=== PATIENT | female | born 1995 | race Caucasian/White ===

== ENCOUNTER 2019-08-24 02:01 | Inpatient (IN) | payer MEDICAID ==
[~2019-08-24] VITALS: Ht 160 cm; Wt 96.4 kg
[2019-08-24] VITALS (15 sets, daily range): BP systolic 99–130; BP diastolic 51–64
--- NOTE | 2019-08-24 02:07 | NUR ---
KARAN MADISON presented to unit via W/C from home/ED, accompanied by Maribel Ellington ED aide & SO, with c/o CONTRACTIONS. KARAN MADISON weighed, gowned, voided, and to bed. EFHM and TOCO applied, VS taken. KARAN MADISON oriented to bed controls, call light, TV, heat, and A/C controls.
[2019-08-24] MEDS ORDERED: PREN-142 PO (02:41)
[2019-08-24 02:43] LABS: BILIRUBIN,URINE NEGATIVE (NEGATIVE); CLARITY,URINE CLEAR; COLOR,URINE YELLOW; GLUCOSE, URINE (UA) NEGATIVE (NEGATIVE); KETONES,URINE NEGATIVE (NEGATIVE); LEUKOCYTE ESTERASE ,URINE 3+ (NEGATIVE); NITRITE,URINE NEGATIVE (NEGATIVE); PH,URINE 7 (5-9); PROTEIN,URINE NEGATIVE (NEGATIVE)
[2019-08-24 02:55] LABS: BACTERIA,URINE TRACE /HPF; WBC,URINE 25-50 /HPF
[2019-08-24 02:56] LABS: TRICHOMONAS,URINE MODERATE /HPF
--- NOTE | 2019-08-24 03:45 | NUR ---
Pt and SO educated on STD's and importance of treatment. Pt reassured that treatment will be available and staff will monitor pt and fetus condition accordingly
--- NOTE | 2019-08-24 06:00 | NUR ---
Dr Valles called with report or pt situation. Orders obtained to make pt inpt and medications for pain obtained.
[2019-08-24] MEDS ORDERED: D5 LR IV SOLUTION 1,000 ML IV ONE (06:31)
[2019-08-24] MEDS ORDERED: metroNIDAZOLE 500MG/100ML IVPB 100 ML ONE (06:31)
[2019-08-24] MEDS ORDERED: HYDROmorphone 2 MG/ML VIAL (DILAUDID) ONE (06:31)
[2019-08-24] MEDS ORDERED: D5 LR IV SOLUTION 1,000 ML IV SCH (06:58)
--- NOTE | 2019-08-24 06:58 | History & Physical-OB ---
OB - Chief Complaint & HPI Date/Time Date of Admission: Date of Admission: Date seen by a Provider: Aug 24, 2019 Time Seen by a Provider: 07:15 Chief Complaint/History OB-Reason for Admission/Chief: Onset of Labor Hx : 5 Hx Para: 4 Expected Date of Delivery: Sep 01, 2019 Gestational Age in Weeks: 38 Gestational Age in Days: 6 Admission Nurse Assessment Rev: Yes History of Labs A pos Antibody neg RI HBsAg NR HIV NR RPR + Titers: 08/09 1:8- treated 07/25 1:8 treated 07/11 1:8 -treated GBS neg Trich + at admission Allergies and Home Medications Allergies Coded Allergies: shellfish derived (Verified Allergy, Severe, Anaphylaxis, 08/24/19) Home Medications Vit No.124/Iron/FA 1 Each Tablet, 1 EACH PO DAILY, (Reported) Patient Home Medication List Home Medication List Reviewed: Yes OB - History Hx of Present Care: Yes Ultrasounds: Normal mid trimester US Obstetrical Complications: Other (Maternal syphillus) Medical Complications: Other (RPR +) Obstetrical History Hx : 5 Hx Para: 4 Patient Past Medical History + RPR Social History/Family History Recent Infectious Disease Expo: No Alcohol Use: Denies Use Recreational Drug Use: No 2nd Hand Smoke Exposure: Yes OB - Admission Exam Physical Exam Vitals: Vital Signs 08/24/19 08/24/19 02:21 02:41 Temp 36.6 Pulse 94 Resp 18 B/P (MAP) 116/64 (81) O2 Delivery Room Air HEENT: NCAT Heart: Rhythm Normal Lungs: Clear Abdomen: Gravid Extremities: Normal Reflexes: Normal Cervical Dilatation: 4cm Effacement: 75% Station: -1 Membranes: Intact Heart Rate: 130's Accelerations: Accelerations Present Decelerations: No Decelerations Short Term Variability: Present Coloring Room Man Variability: Average (6-25) Contractions on Admission: < 5 Minutes Apart Intensity: Firm Labs Laboratory Tests Test 08/24/19 02:10 Range/Units Urine Color YELLOW Urine Clarity CLEAR Urine pH 7 5-9 Urine Specific [place] 1.010 L 1.016-1.022 Urine Protein NEGATIVE NEGATIVE Urine Glucose (UA) NEGATIVE NEGATIVE Urine Ketones NEGATIVE NEGATIVE Urine Nitrite NEGATIVE NEGATIVE Urine Bilirubin NEGATIVE NEGATIVE Urine Urobilinogen NORMAL NORMAL MG/DL Urine Leukocyte Esterase 3+ H NEGATIVE Urine RBC (Auto) 1+ H NEGATIVE Urine RBC 5-10 H /HPF Urine WBC 25-50 H /HPF Urine Squamous Epithelial Cells 2-5 /HPF Urine Crystals NONE /LPF Urine Bacteria TRACE /HPF Urine Casts NONE /LPF Urine Mucus SMALL H /LPF Urine Trichomonas MODERATE H /HPF Urine Culture Indicated NO OB - Assessment/Plan/Diagnosis Assessment Assessment: active labor Admission Dx 24 yo @ 38.6 Active labor RPR + GBS neg Admission Status: Inpatient Order (span 2 midnights) Reason for Inpatient Admission: Active labor at term Plan Plan: Expectant Management Other Plan Treat with IV Flagyl for trichimonas PETERSON SULTANA DO Aug 24, 2019 6:58 am
[2019-08-24] MEDS ORDERED: HYDROmorphone 2 MG/ML VIAL (DILAUDID) IV ONE ×2 (07:00→08:55)
[2019-08-24 07:10] LABS: BASOPHILS % (AUTO) 0 % (0-10); EOSINOPHILS # (AUTO) 0.1 10^3/uL (0.0-0.3); EOSINOPHILS % (AUTO) 1 % (0-10); HEMATOCRIT 36 % (35-52); HEMOGLOBIN 12.3 G/DL (11.5-16.0); LYMPHOCYTES # (AUTO) 1.4 X 10^3 (1.0-4.0); LYMPHOCYTES % (AUTO) 15 % (12-44); MEAN CORPUSCULAR HEMOGLOBIN 30 PG (25-34); MEAN CORPUSCULAR HGB CONC 34 G/DL (32-36); MEAN CORPUSCULAR VOLUME 89 FL (80-99); MEAN PLATELET VOLUME 11.5 FL (7.4-10.4); MONOCYTES # (AUTO) 0.7 X 10^3 (0.0-1.0); MONOCYTES % (AUTO) 8 % (0-12); NEUTROPHILS % (AUTO) 76 % (42-75); PLATELET COUNT 190 10^3/uL (130-400); RED CELL DISTRIBUTION WIDTH 13.2 % (10.0-14.5); WHITE BLOOD COUNT 9.2 10^3/uL (4.3-11.0)
[2019-08-24] MEDS ORDERED: OXYTOCIN PRE-MIX DRIP 500 ML IV ONE (07:28)
[2019-08-24] MEDS ORDERED: LIDOCAINE/EPI 2% 1:200,00 (XYLOCAINE) 10 ML VIAL ONE (07:28)
[2019-08-24] MEDS ORDERED: TETANUS,DIPTH,PERTUSS P/F (BOOSTRIX) 0.5 ML VIAL IM ONE (08:30)
[2019-08-24] MEDS ORDERED: MEASLES,MUMPS,RUBELLA 1 EA INJ SQ ONE (08:30)
[2019-08-24] MEDS ORDERED: IBUP-1773 PO (08:30)
[2019-08-24] MEDS ORDERED: DOCU-143 PO (08:30)
[2019-08-24] MEDS ORDERED: WITCH HAZEL(TUCKS) 40 EA JAR TOP PRN (08:30)
[2019-08-24] MEDS ORDERED: DIBUCAINE (NUPERCAINAL) 1% OINT 30 GM TOP PRN (08:30)
[2019-08-24] MEDS ORDERED: BENZOCAINE/MENTHOL (DERMOPLAST) 60 ML CAN TP PRN (08:30)
[2019-08-24] MEDS ORDERED: Benzocaine/Menthol TP (08:30)
[2019-08-24] MEDS ORDERED: HYDR-4226 PO (08:30)
--- NOTE | 2019-08-24 08:31 | Discharge Inst-Women's Service ---
Discharge Inst-Women's Serv Depart Medication/Instructions New, Converted or Re-Newed RX: RX on Chart Final Diagnosis PPD 1 NVD Problems Reviewed?: Yes Consults/Follow Up Additional Follow Up: Yes Orders/Referrals Dr. Sultana in 6 weeks Activity Activity: Activity as Tolerated Driving Instructions: No Driving for 1 Week NO SMOKING: NO SMOKING Nothing Inside Vagina: No Douching, No [place], No Tampons Diet Discharge Diet: No Restrictions Symptoms to Report to : Bleeding Excessive, Pain Increased, Fever Over 101 Degrees F, Vaginal Bleeding Increase, Questions/Concerns For Any Problems or Questions: Contact Your Physician PETERSON SULTANA DO Aug 24, 2019 8:31 am
[2019-08-24] MEDS ORDERED: HYDROcodone/APAP 5 MG/325 MG (LORTAB) TAB PO PRN (08:45)
[2019-08-24] MEDS: OXYTOCIN PRE-MIX DRIP 500 ML IV SCH ×2 (09:06→09:43)
--- NOTE | 2019-08-24 09:19 | OB Labor & Delivery Record ---
L&D History Date of Service Date of Service: Aug 24, 2019 History Expected Date of Delivery: Sep 01, 2019 Gestational Age in Weeks: 38 Hx : 5 Hx Para: 4 Complications Events: Routine care RPR + with titers Operative Indications (Cesarea: N/A-Vaginal Delivery Intrapartal Events: None L&D Stage1 Stage One Onset of Labor - Date: Aug 24, 2019 Monitors and Tracing Monitor Mode: External Heart Rate: 115 Monitor Decelerations: Early Station: -2 Short Term Variability: Present Presentation: Vertex Vital Signs VS - Last 72 Hours, by Label 08/24/19 08/24/19 08/24/19 08/24/19 02:21 02:41 04:30 06:00 Temp 36.6 36.6 36.4 36.4 Pulse 94 94 93 93 Resp B/P (MAP) 116/64 (81) 115/54 (74) Pulse Ox 98 O2 Delivery Room Air Room Air 08/24/19 07:15 Temp 36.7 Rupture of Membranes Spontaneous Ruture of Membrane: No Amniotic Membrane Rupture Time: 717 Amniotic Membrane Fluid Desc.: Clear Vaginal Bleeding Description: Normal Show Progress/Notes patient progressed without any augmentation to complete and +2 station. 1 mg dilaudid was given x 1 dose for intrapartum pain control L&D Stage2 Stage Two Stage II Date: Aug 24, 2019 Monitors and Tracing Monitor Mode: External Heart Rate: 115 Monitor Decelerations: Early Software Developer Manager Variability: Average (6-10) Short Term Variability: Present Position: Right Occiput Anterior Presentation: Vertex Cord Descript/Complications Cord Vessel Description: 3 Vessels Delivery Type Infant Delivery Method: Spontaneous Vaginal Anterior Shoulder: Right Episiotomy/Perineal Laceration Laceraction(s)/Extensions: Yes Episiotomy Description: Periurethral Extnsion/lac, Perineal Extension/lac Degree (describe repair) perineal 2degree and periuretral repaired using 3-0 rapide vicryl suture Condition of Infant Delivery 1 minute Comment: 8 5 minute Comment: 8 Notes Live female infant weight 7lbs 12 oz Condition of Condition of : Living Exam: No Observed Abnormalities Resuscitation Resuscitation: N/A - Spontaneous Resp L&D Stage3 Stage Three Stage III Date: Aug 24, 2019 Pictocin Pitocin Administration Comment: 30 mu wide open at delviery of placenta Placenta Delivery Placenta Delivery: Spontaneous Delivery Summary Summary Estimated blood loss (mL): 350 Attending at delivery: Peterson Sultana DO Condition of Delivery Examined: Cervix Examined, Uterus Explored Post Hemorrhage: No Condition of Mother stable Condition of (s) stable PETERSON SULTANA DO Aug 24, 2019 09:19
--- NOTE | 2019-08-24 11:20 | NUR ---
I spoke to Daren Rose at [facility] [phone] to report baby born to mom who had syphilis during . Orders requested for RPR day of delivery. Dr Valles notified and RPR ordered. Dheeraj folllow up with Daren at [facility] and with Baby physician. DAVID Lou notified.
[2019-08-24] MEDS: IBUPROFEN 600 MG (MOTRIN) TAB PO SCH ×2 (11:46→18:28)
--- NOTE | 2019-08-24 11:53 | NUR ---
CM/SS DCF online report made due to concerns that mother was positive for syphilis and not believed to have custody of her other children. DCF intake # [id number].
--- NOTE | 2019-08-24 12:00 | NUR ---
REFER TO LABOR FLOW SHEET.
[2019-08-24] MEDS ORDERED: CATHETER FLUSH 10 ML SYR IV SCH ×2 (14:00)
--- NOTE | 2019-08-24 14:30 | NUR ---
PT SITTING UP ON THE SIDE OF THE BED, HOLDING . RE-SWADDLED PER REQUEST. NO FURTHER NEEDS VOICED. CALL LIGHT WITHIN REACH.
--- NOTE | 2019-08-24 15:45 | NUR ---
THIS RN TO BEDSIDE, PT UP IN THE BATHROOM, JUST PASSED A LARGE CLOT, APPROX SIZE OF A GOLF BALL. PT TO BED. FFU/-1 WITH MASSAGE, MODERATE LOCHIA NOTED, NO FURTHER CLOTS EXPRESSED. WILL CONTINUE TO MONITOR.
--- NOTE | 2019-08-24 16:50 | NUR ---
VS OBTAINED. FFU/-1, MODERATE VAG FLOW, NO CLOTS. S/O AT THE BEDSIDE. NO NEEDS OR QUESTIONS VOICED AT THIS TIME.
--- NOTE | 2019-08-24 18:30 | NUR ---
PT SITTING UP ON THE SIDE OF THE BED. ROUTINE MOTRIN GIVEN PO; SEE EMAR FOR FURTHER. PT DENIES ANY NEEDS AT THIS TIME.
[2019-08-24] MEDS: DOCUSATE SODIUM 100 MG (COLACE) CAP PO SCH (20:16)
[2019-08-25] MEDS: IBUPROFEN 600 MG (MOTRIN) TAB PO SCH ×3 (00:35→13:02)
[2019-08-25 00:36] VITALS: BP 112/58
[2019-08-25 04:30] VITALS: BP 106/58
[2019-08-25 05:51] LABS: BASOPHILS % (AUTO) 0 % (0-10); EOSINOPHILS # (AUTO) 0.1 10^3/uL (0.0-0.3); EOSINOPHILS % (AUTO) 1 % (0-10); HEMATOCRIT 32 % (35-52); HEMOGLOBIN 10.6 G/DL (11.5-16.0); LYMPHOCYTES % (AUTO) 19 % (12-44); MEAN CORPUSCULAR HEMOGLOBIN 31 PG (25-34); MEAN CORPUSCULAR HGB CONC 33 G/DL (32-36); MEAN CORPUSCULAR VOLUME 91 FL (80-99); MEAN PLATELET VOLUME 11.2 FL (7.4-10.4); MONOCYTES % (AUTO) 9 % (0-12); NEUTROPHILS # (AUTO) 7.8 X 10^3 (1.8-7.8); NEUTROPHILS % (AUTO) 71 % (42-75); PLATELET COUNT 188 10^3/uL (130-400); RED CELL DISTRIBUTION WIDTH 13.2 % (10.0-14.5); WHITE BLOOD COUNT 10.9 10^3/uL (4.3-11.0)
--- NOTE | 2019-08-25 06:00 | NUR ---
IV removed at this time. Pt tolerated well.
[2019-08-25] MEDS ORDERED: PRENATAL VITAMIN 1 EA TAB PO SCH (07:00)
--- NOTE | 2019-08-25 07:42 | Postpartum Progress Note ---
Note Note Day # 1 Subjective: Patient is without complaints. Ambulating, voiding. Tolerating a regular diet without nausea or vomiting. Normal lochia. Pain is well controlled with oral pain medications. Objective: Physical Exam: General - Alert and oriented, no apparent distress Abdomen - Soft, appropriately tender to palpation, non-distended, fundus firm at umbilicus Extremities - no edema, negative Wendy's bilaterally Assessment: PPD 1 NVD Acute blood loss anemia RPR + Plan: Routine care. Encourage breast feeding. Encourage ambulation. Ferrous sulfate supplementation. Plan for discharge today Vitals - Labs Vital Signs - I&O Vital Signs Date Time Temp Pulse Resp B/P (MAP) Pulse Ox O2 Delivery O2 Flow Rate FiO2 08/25/19 04:30 36.5 75 18 106/58 (74) 97 Room Air 08/25/19 00:36 36.9 83 18 112/58 (76) 97 Room Air 08/24/19 21:20 36.5 74 20 111/59 (76) 97 Room Air 08/24/19 16:49 36.2 88 18 122/56 (78) 97 Room Air 08/24/19 11:40 36.4 88 18 104/58 (73) Room Air 08/24/19 11:25 76 18 99/51 (67) Room Air 08/24/19 11:10 85 18 104/59 (74) Room Air 08/24/19 10:55 85 18 101/57 (72) Room Air 08/24/19 10:40 100 18 106/59 (75) Room Air 08/24/19 10:25 36.6 88 18 103/58 (73) Room Air 08/24/19 10:10 78 18 100/52 (68) Room Air 08/24/19 09:56 36.6 101 18 118/60 (79) Room Air 08/24/19 09:27 36.7 08/24/19 09:00 36.9 96 18 130/64 (86) Room Air 08/24/19 08:14 36.1 I & O 08/25/19 07:00 Intake Total 1100 ml Balance 1100 ml Labs Laboratory Tests 08/24/19 12:12: Syphilis Serology ReactiveH 08/25/19 05:42: White Blood Count 10.9, Red Blood Count 3.47L, Hemoglobin 10.6L, Hematocrit 32L, Mean Corpuscular Volume 91, Mean Corpuscular Hemoglobin 31, Mean Corpuscular Hemoglobin Concent 33, Red Cell Distribution Width 13.2, Platelet Count 188, Mean Platelet Volume 11.2H, Neutrophils (%) (Auto) 71, Lymphocytes (%) (Auto) 19, Monocytes (%) (Auto) 9, Eosinophils (%) (Auto) 1, Basophils (%) (Auto) 0, Neutrophils # (Auto) 7.8, Lymphocytes # (Auto) 2.0, Monocytes # (Auto) 1.0, Eosinophils # (Auto) 0.1, Basophils # (Auto) 0.0 PETERSON SULTANA DO Aug 25, 2019 07:42
[2019-08-25] MEDS ORDERED: METR500T PO (07:45)
--- NOTE | 2019-08-25 07:50 | NUR ---
DR. SULTANA HERE TO SEE PT. PLAN TO GO TO ROOMING-IN PARENT TODAY.
[2019-08-25 08:00] VITALS: BP 117/59
--- NOTE | 2019-08-25 08:10 | NUR ---
A.M. ASSESSMENT COMPLETED. VSS. PLAN TO GO TO ROOMING-IN STATUS TODAY. INFANT ASLEEP AT BEDSIDE.
[2019-08-25] MEDS: DOCUSATE SODIUM 100 MG (COLACE) CAP PO SCH (08:19)
[2019-08-25] MEDS ORDERED: metroNIDAZOLE 500 MG (FLAGYL) TAB PO SCH (09:00)
--- NOTE | 2019-08-25 10:00 | NUR ---
CONTINUES TO DO WELL. REMAINS IN CONTACT ISOLATION. GOOD INTERACTION NOTED.
--- NOTE | 2019-08-25 12:00 | NUR ---
NO CHANGE IN STATUS. S.O. AT BEDSIDE,
[2019-08-25 13:00] VITALS: BP 110/58
--- NOTE | 2019-08-25 14:15 | NUR ---
INFANT IN NURSERY FOR LUMBAR PUNCTURE. SEE NURSERY NOTES.
--- NOTE | 2019-08-25 15:00 | NUR ---
PLAN TO TRANSFER INFANT. DR. PARNELL TO TALK WITH PARENTS.
--- NOTE | 2019-08-25 15:40 | NUR ---
DISCHARGE INSTRUCTIONS REVIEWED WITH COPY TO PT. RXS FILLED EARLIER BY S.O. STATES UNDERSTANDING OF ALL INSTRUCTIONS AND NEED TO F/U SCHEDULED AND NEEDED.
--- NOTE | 2019-08-25 16:30 | NUR ---
[facility] TEAM IN MOM'S ROOM. PREPARING FOR TRANSFER OF INFANT. SEE NURSERY NOTES.
[2019-08-25 16:50] VITALS: BP 110/58
--- NOTE | 2019-08-25 16:50 | NUR ---
DISMISSED AMB FROM [facility] IN STABLE CONDITION TO [facility] BY Joseluis AND DAVE MIRANDA RN.
--- OUTSIDE RECORDS SUMMARY | 2019-09-16 12:16 | XMS REPORT | Continuity of Care Document ---
Author Organization Unknown POS Address Unknown SP Phone Unavailable SP Allergies Active Description Code Type Severity POS Reaction Onset Reported/Identified POS to Patient Clinical Status POS Yes shellfish derived [id number] Drug Allergy SP Severe Anaphylaxis 08/24/2019 SP SP Medications There is no data. Problems Date Dx Coded Attending Type Code POS Diagnosed By POS 08/25/2019 PETERSON SULTANA DO Ot A53.9 SP SYPHILIS, UNSPECIFIED SP 08/25/2019 PETERSON SULTANA DO, Ot A59.9 SP TRICHOMONIASIS, UNSPECIFIED SP 08/25/2019 PETERSON SULTANA DO Ot D6 2 SP POSTHEMORRHAGIC ANEMIA SP 08/25/2019 PETERSON SULTANA DO Ot F17.290 SP NICOTINE DEPENDENCE, OTHER TOBACCO PRODU SP 08/25/2019 PETERSON SULTANA DO Ot O70.1 SP SECOND DEGREE PERINEAL LACERATION DURING SP 08/25/2019 PETERSON SULTANA DO Ot O71.82 SP OTHER SPECIFIED TRAUMA TO PERINEUM AND V SP 08/25/2019 PETERSON SULTANA DO Ot O90.81 SP ANEMIA OF THE PUERPERIUM SP 08/25/2019 PETERSON SULTANA DO Ot O98.12 SP SYPHILIS COMPLICATING CHILDBIRTH SP 08/25/2019 PETERSON SULTANA DO Ot O98.32 SP OTH INFECTIONS W SEXL MODE OF TRANSMISS SP 08/25/2019 PETERSON SULTANA DO Ot O99.334 SP SMOKING (TOBACCO) COMPLICATING CHILDBIRT SP 08/25/2019 PETERSON SULTANA DO Ot Z37.0 SP SINGLE LIVE SP 08/25/2019 PETERSON SULTANA DO Ot Z3A.38 SP 38 WEEKS GESTATION OF SP Procedures Code Description Performed By Per formed On POS [id number] RE PAIR PERINEUM MUSCLE, OPEN SPAPPROACH 08/24/2019 SP [id number] RE PAIR VULVA, EXTERNAL SP 08/24/2019 SP [id number] DI VISION OF FEMALE PERINEUM, SPEXTERNAL AP 08/24/2019 SP [id number] DE LIVERY OF PRODUCTS OF SP EXTE 08/24/2019 SP Results Test Result Range POS Complete urinalysis with reflex to cultu re - 08/24/19 02:10 POS Urine color determination YELLOW NRG SP Urine clarity determination CLEAR NR G SP Urine pH measurement by test strip 7 5-9 SP Specific gravity of urine by test strip 1.010 1.016-1.022 SP Urine protein assay by test strip, semi-quantitative NEGATIVE SP NEGATIVE SP Urine glucose detection by automated test strip NE GATIVE SP Erythrocytes detection in urine sediment by light micr oscopy 1+ SP NEGATIVE SP Urine ketones detection by automated test strip NE GATIVE SP Urine nitrite detection by test strip NEGATIVE NEGATIVE SP Urine total bilirubin detection by test strip NEGA TIVE SP Urine urobilinogen measurement by automated test strip (mass/volume) SP NORMAL SP Urine leukocyte esterase detection by dipstick 3+ NEGATIVE SP Automated urine sediment erythrocyte cou nt by microscopy (number/high power SP [HPF] NRG SP Automated urine sediment leukocyte count by microscopy (number/high power field) SP [HPF] NRG SP Bacteria detection in urine sediment by light microsco py TRACE SP NRG SP Squamous epithelial cells detection in u rine sediment by light microscopy SP 2-5 NRG SP Crystals detection in urine sediment by light microsco py NONE SP NRG SP Casts detection in urine sediment by light microscopy NONE SP Mucus detection in urine sediment by light microscopy SMALL SP NRG SP Complete urinalysis with reflex to culture NO NRG SP Urine Trichomonas species detection by light microscop y MODERATE SP NRG SP Complete blood count (CBC) with automate d white blood cell (WBC) differential - POS 06:23 Blood leukocytes automated count (number/volume) 9.2 10*3/uL POS 4.3-11.0 SP Blood erythrocytes automated count (number/volume) 4.07 10*6/uL SP 4.35-5.85 SP Venous blood hemoglobin measurement (mass/volume) 12.3 g/dL SP16.0 Blood hematocrit (volume fraction) 36 % 35-52 SP Automated erythrocyte mean corpuscular volume 89 [ foz_us] SP99 Automated erythrocyte mean corpuscular h emoglobin (mass per erythrocyte) SP 30 pg 25-34 SP Automated erythrocyte mean corpuscular h emoglobin concentration measurement SP 34 g/dL 32-36 SP Automated erythrocyte distribution width ratio 13. 2 % 10.0- SP Automated blood platelet count (count/volume) 190 10*3/uL SP400 Automated blood platelet mean volume measurement 11.5 [foz_us] SP 7.4-10.4 SP Automated blood neutrophils/100 leukocytes 76 % 42-75 SP Automated blood lymphocytes/100 leukocytes 15 % 12-44 SP Blood monocytes/100 leukocytes 8 % 0-12 SP Automated blood eosinophils/100 leukocytes 1 % 0-10 SP Automated blood basophils/100 leukocytes 0 % 0-10 SP Blood neutrophils automated count (number/volume) 7.0 10*3 SP7.8 Blood lymphocytes automated count (number/volume) 1.4 10*3 SP4.0 Blood monocytes automated count (number/volume) 0. 7 10*3 SP1.0 Automated eosinophil count 0.1 10*3/uL 0 .0-0.3 SP Automated blood basophil count (count/volume) 0.0 10*3/uL SP0.1 Blood type T Indirect antibody screen [facility] - 08/24/19 06:23 POS WRISTBAND NUMBER [id number] NRG SP ABO+Rh group AP NRG SP Blood group antibody screen NEGATIVE NR G SP Serum reagin antibody assay (units/volum e) by [facility] - 08/24/19 12:12 POS Serum reagin antibody assay (units/volume) by R NRG SP Serum reagin antibody assay (units/volum e) by [facility] 08/24/19 12:12 POS Serum reagin antibody assay (units/volume) by RPR Reactive SPReactive Complete blood count (CBC) with automate d white blood cell (WBC) differential - POS 05:42 Blood leukocytes automated count (number/volume) 10.9 10*3/uL POS 4.3-11.0 SP Blood erythrocytes automated count (number/volume) 3.47 10*6/uL SP 4.35-5.85 SP Venous blood hemoglobin measurement (mass/volume) 10.6 g/dL SP16.0 Blood hematocrit (volume fraction) 32 % 35-52 SP Automated erythrocyte mean corpuscular volume 91 [ foz_us] SP99 Automated erythrocyte mean corpuscular h emoglobin (mass per erythrocyte) SP 31 pg 25-34 SP Automated erythrocyte mean corpuscular h emoglobin concentration measurement SP 33 g/dL 32-36 SP Automated erythrocyte distribution width ratio 13. 2 % 10.0- SP Automated blood platelet count (count/volume) 188 10*3/uL SP400 Automated blood platelet mean volume measurement 11.2 [foz_us] SP 7.4-10.4 SP Automated blood neutrophils/100 leukocytes 71 % 42-75 SP Automated blood lymphocytes/100 leukocytes 19 % 12-44 SP Blood monocytes/100 leukocytes 9 % 0-12 SP Automated blood eosinophils/100 leukocytes 1 % 0-10 SP Automated blood basophils/100 leukocytes 0 % 0-10 SP Blood neutrophils automated count (number/volume) 7.8 10*3 SP7.8 Blood lymphocytes automated count (number/volume) 2.0 10*3 SP4.0 Blood monocytes automated count (number/volume) 1. 0 10*3 SP1.0 Automated eosinophil count 0.1 10*3/uL 0 .0-0.3 SP Automated blood basophil count (count/volume) 0.0 10*3/uL SP0.1 Encounters ACCT No. Visit Date/Time Discharge Status POS Pt. Type Provider Facility Loc./Un it POS Complaint POS [id number] 08/27/2019 07:00:00 23:59:59 SP CLS Preadmit PETERSON SULTANA DO SP INDUCTION SP [id number] 08/24/2019 06:01:00 16:50:00 SP DIS Outpatient PETERSON SLUTANA DO [facility] LDRP LABOR DELIVERY SP
== END 2019-08-25 16:50 | disposition home or self-care (01) | DRG 806 ==
LOC: WSo 02:01 → LDRP 02:02 → WSo 06:00 → LDRP 06:01
PROVIDERS: ADMIT Obstetrics & Gynecology; ATTEND Obstetrics & Gynecology
PROC: 10E0XZZ Delivery of Products of Conception, External Approach (ICD-10-PCS; principal; 2019-08-24)
PROC: 0W8NXZZ Division of Female Perineum, External Approach (ICD-10-PCS; 2019-08-24)
PROC: 0KQM0ZZ Repair Perineum Muscle, Open Approach (ICD-10-PCS; 2019-08-24)
PROC: 0UQMXZZ Repair Vulva, External Approach (ICD-10-PCS; 2019-08-24)
DX: O98.32 Other infections with a predominantly sexual mode of transmission complicating childbirth (principal); A59.9 Trichomoniasis, unspecified; O90.81 Anemia of the puerperium; D62 Acute posthemorrhagic anemia; O99.334 Smoking (tobacco) complicating childbirth; F17.290 Nicotine dependence, other tobacco product, uncomplicated; O70.1 Second degree perineal laceration during delivery; O71.82 Other specified trauma to perineum and vulva; Z3A.38 38 weeks gestation of pregnancy; Z37.0 Single live birth
CPT/HCPCS: 36415; 81000; 85025; 86592; 86780; 86850; 86900; 86901; 88307; 99212

== ENCOUNTER 2019-10-29 13:12 | Emergency (ER) | payer MEDICAID ==
[~2019-10-29] VITALS: Ht 160 cm; Wt 98.9 kg
[~2019-10-29 13:12] MED LIST: Benzocaine/Menthol TP; DOCU-143 PO; HYDR-4226 PO; IBUP-1773 PO; METR500T PO; PREN-142 PO
[2019-10-29 14:20] LABS: BILIRUBIN,URINE NEGATIVE (NEGATIVE); CLARITY,URINE CLEAR; COLOR,URINE YELLOW; GLUCOSE, URINE (UA) NEGATIVE (NEGATIVE); KETONES,URINE NEGATIVE (NEGATIVE); LEUKOCYTE ESTERASE ,URINE 1+ (NEGATIVE); NITRITE,URINE NEGATIVE (NEGATIVE); PH,URINE 6.5 (5-9); PROTEIN,URINE NEGATIVE (NEGATIVE)
--- NOTE | 2019-10-29 14:42 | ED General ---
General Chief Complaint: Abdominal/GI Problems Stated Complaint: VOMITING;FEVER;COUGH Nursing Triage Note: Ambulatory to triage. Pt c/o nausea, vomiting, abdominal pain and productive cough for two days. Pt reports 102 temperature at home. Pt reports alternating tylenol and ibuprofen at home. Pt afebrile at assessment. Nursing Sepsis Screen: No Definite Risk Source of Information: Patient Exam Limitations: No Limitations History of Present Illness Date Seen by Provider: Oct 29, 2019 Time Seen by Provider: 14:41 Initial Comments To ER with vomiting, cough, runny nose, sore throat, fever up to 102 for 2 days now. became ill with similar symptoms yesterday. No diarrhea. Eating and drinking okay. Timing/Duration: 1-2 Days Severity: Moderate Associated Systoms: Cough, Fever/Chills, Nausea/Vomiting Allergies and Home Medications Allergies Coded Allergies: shellfish derived (Verified Allergy, Severe, Anaphylaxis, 08/24/19) Home Medications Cefuroxime Axetil 250 Mg Tablet, 250 MG PO BID Prescribed by: SHAUN PARNELL on 10/29/19 1447 Docusate Sodium 100 Mg Capsule, 100 MG PO BID PRN for CONSTIPATION-1ST LINE Prescribed by: PETERSON SULTANA on 08/24/19829 Hydrocodone/Acetaminophen 1 Each Tablet, 1 TAB PO Q4-6HR Prescribed by: PETERSON SULTANA on 08/24/19829 Ibuprofen 600 Mg Tablet, 600 MG PO Q6H Prescribed by: PETERSON SULTANA on 08/24/19829 Metronidazole 500 Mg Tablet, 500 MG PO BID Prescribed by: PETERSON SULTANA on 08/25/19 0745 Vit No.124/Iron/FA 1 Each Tablet, 1 EACH PO DAILY, (Reported) [Benzocaine/Menthol] 56 ML AEROSOL, 56 ML TP UD PRN for PAIN- SEE INSTRUCTIONS EXTERNAL USE ONLY Prescribed by: PETERSON SULTANA on 08/24/19 08 Patient Home Medication List Home Medication List Reviewed: Yes Review of Systems Review of Systems Constitutional: see HPI, chills, fever, malaise, weakness EENTM: throat pain Respiratory: see HPI, cough Cardiovascular: no symptoms reported Gastrointestinal: nausea, vomiting Genitourinary: no symptoms reported Musculoskeletal: no symptoms reported Skin: no symptoms reported Psychiatric/Neurological: No Symptoms Reported Hematologic/Lymphatic: No Symptoms Reported Past Hstywiy-Wxcdbb-Mfxgrc Hx Patient Social History Alcohol Use: Denies Use Recreational Drug Use: No Smoking Status: Current Everyday Smoker Type Used: Electronic/Vapor 2nd Hand Smoke Exposure: Yes Recent Foreign Travel: No Contact w/Someone Who Travel: No Recent Infectious Disease Expo: No Physical Abuse: No Sexual Abuse: No Mistreated: No Seasonal Allergies Seasonal Allergies: No Past Medical History Surgeries: No Respiratory: No Cardiac: No Neurological: No Last Menstrual Period: Oct 01, 2019 Sexually Transmitted Disease: Yes (syphillis) Genitourinary: No Gastrointestinal: No Musculoskeletal: No Endocrine: No HEENT: No Cancer: No Psychosocial: No Integumentary: No Family Medical History Patient reports no known family medical history. Physical Exam Vital Signs Vital Signs - First Documented 10/29/19 13:45 Temp 36.8 Pulse 77 Resp 12 B/P (MAP) 107/69 (82) Pulse Ox 98 O2 Delivery Room Air Capillary Refill : Less Than 3 Seconds Height, Weight, BMI Height: '" Weight: lbs. oz. kg; 38.00 BMI Method: General Appearance: No Apparent Distress, WD/WN Eyes: Bilateral Eye Normal Inspection, Bilateral Eye PERRL, Bilateral Eye EOMI HEENT: PERRL/EOMI, TMs Normal Neck: Full Range of Motion, Normal Inspection Respiratory: Normal Breath Sounds, No Accessory Muscle Use, No Respiratory Distress Cardiovascular: Regular Rate, Rhythm, Normal Peripheral Pulses Gastrointestinal: Normal Bowel Sounds, Non Tender, Soft Extremity: Normal Capillary Refill, Normal Inspection Neurologic/Psychiatric: Alert, Oriented x3 Skin: Normal Color, Warm/Dry Progress/Results/Core Measures Suspected Sepsis Recent Fever Within 48 Hours: Yes Infection Criteria Present: None New/Unexplained Altered Menta: No Sepsis Screen: No Definite Risk SIRS Temperature: Pulse: 77 Respiratory Rate: 12 Blood Pressure 107 /69 Mean: 82 Results/Orders Lab Results Laboratory Tests Test 10/29/19 13:58 Range/Units Urine Color YELLOW Urine Clarity CLEAR Urine pH 6.5 5-9 Urine Specific [place] 1.025 H 1.016-1.022 Urine Protein NEGATIVE NEGATIVE Urine Glucose (UA) NEGATIVE NEGATIVE Urine Ketones NEGATIVE NEGATIVE Urine Nitrite NEGATIVE NEGATIVE Urine Bilirubin NEGATIVE NEGATIVE Urine Urobilinogen 0.2 < = 1.0 MG/DL Urine Leukocyte Esterase 1+ H NEGATIVE Urine RBC (Auto) NEGATIVE NEGATIVE Urine RBC NONE /HPF Urine WBC 10-25 H /HPF Urine Squamous Epithelial Cells 10-25 H /HPF Urine Crystals NONE /LPF Urine Bacteria MODERATE H /HPF Urine Casts NONE /LPF Urine Mucus NEGATIVE /LPF Urine Culture Indicated YES My Orders Orders - SHAUN PARNELL APRN Chest Pa/Lat (2 View) (10/29/19 14:40) Influenza A And B Antigens (10/29/19 14:40) Ondansetron Oral Dissolve Tab (Zofran (10/29/19 14:45) Ibuprofen Tablet (Motrin Tablet) (10/29/19 14:45) Medications Given in ED Current Medications Medications Dose Ordered Sig/Yasmin Route Start Time Stop Time Status Last Admin Dose Admin Ibuprofen 800 mg ONCE ONCE PO 10/29/19 14:45 10/29/19 14:46 DC 10/29/19 15:05 800 MG Ondansetron HCl 8 mg ONCE ONCE PO 10/29/19 14:45 10/29/19 14:46 DC 10/29/19 15:05 8 MG Vital Signs/I&O 10/29/19 13:45 Temp 36.8 Pulse 77 Resp 12 B/P (MAP) 107/69 (82) Pulse Ox 98 O2 Delivery Room Air Capillary Refill : Less Than 3 Seconds Blood Pressure Mean: 82 Departure Impression Primary Impression: Urinary tract infection Qualified Codes: N30.00 - Acute cystitis without hematuria Additional Impression: Influenza-like illness Disposition: 01 HOME, SELF-CARE Condition: Improved Departure-Patient Inst. Decision time for Depature: 14:47 Referrals: NO,LOCAL PHYSICIAN (PCP/Family) Primary Care Physician Patient Instructions: Urinary Tract Infection, Adult (DC) Add. Discharge Instructions: Ibuprofen and Tylenol are appropriate for pain and fever control 2. Drink plenty of fluids 3. Antibiotics as directed All discharge instructions reviewed with patient and/or family. Voiced understanding. Scripts Acetaminophen with Codeine (Tylenol with Codeine #3 Tablet) 1 Each Tablet 1 EACH PO Q6H PRN for COUGH for 7 Days, #10 TAB Prov: SHAUN PARNELL APRN 10/29/19 Cefuroxime Axetil (Cefuroxime) 250 Mg Tablet 250 MG PO BID, #10 TAB Prov: SHAUN PARNELL APRN 10/29/19 Work/School Note: Work Release Form Date Seen in the Emergency Department: Oct 29, 2019 Return to Work: Nov 01, 2019 SHAUN PARNELL APRN Oct 29, 2019 14:42
[2019-10-29 14:44] LABS: BACTERIA,URINE MODERATE /HPF
[2019-10-29] MEDS ORDERED: ONDANSETRON 4 MG (ZOFRAN) ORAL DISSOLVE TAB PO ONE (14:45)
[2019-10-29] MEDS ORDERED: IBUPROFEN 800 MG (MOTRIN) TAB PO ONE (14:45)
[2019-10-29] MEDS ORDERED: CEFU250T80 PO (14:47)
--- NOTE | 2019-10-29 15:10 | Diagnostic Imaging Report ---
INDICATION: Nausea and vomiting. TIME OF EXAM: 3:00 p.m. COMPARISON: No prior studies are available for comparison. FINDINGS: The heart size is normal. The pulmonary vascularity is unremarkable. The lungs are clear. No infiltrate, effusion or pneumothorax is detected. IMPRESSION: No acute cardiopulmonary process is detected. Dictated by: Dictated on workstation # [id number]
[2019-10-29] MEDS ORDERED: ACET-789 PO (15:16)
[2019-10-29 15:59] VITALS: BP 107/69
== END 2019-10-29 15:59 | disposition home or self-care (01) ==
LOC: EDUNIT# 13:12 → ER 13:13
DX: N39.0 Urinary tract infection, site not specified (principal); J11.1 Influenza due to unidentified influenza virus with other respiratory manifestations; F17.290 Nicotine dependence, other tobacco product, uncomplicated
CPT/HCPCS: 71046; 81000; 84703; 87088; 87804

== ENCOUNTER 2019-12-25 17:07 | Emergency (ER) | payer MEDICAID ==
[~2019-12-25] VITALS: Ht 160 cm; Wt 104.0 kg
[~2019-12-25 17:07] MED LIST changes: +ACET-789 PO; +CEFU250T80 PO
[2019-12-25] MEDS ORDERED: RX-MUPIROCIN (BACTROBAN) 2% OINT 22 GM TUBE TOP STA (20:10)
[2019-12-25] MEDS ORDERED: RX-AMOXICILLIN 500 MG CAP #3 PPK PO STA (20:10)
[2019-12-25] MEDS ORDERED: AMOX500C2 PO (20:23)
--- NOTE | 2019-12-25 20:24 | ED General ---
General Chief Complaint: General Problems/Pain Stated Complaint: TOOTH ACHE Nursing Triage Note: PT STATES RT LOWER REAR DENTAL PAIN, ALSO BELIEVES SHE IS HAVING AN STD OUTBREAK. Nursing Sepsis Screen: No Definite Risk History of Present Illness Date Seen by Provider: Dec 25, 2019 Time Seen by Provider: 17:30 Initial Comments 24-year-old female presents for right lower molar dental pain. She has not seen a dentist. She moved here from [place] approximately one year ago. She was diagnosed with influenza and 2016. She just had a baby approximately one month ago and had monthly titers for syphilis and multiple injections of penicillin G. She has noticed a small rash to her right labia is concerned that she could have recurrence of the syphilis. She denies any additional STD in her past. Timing/Duration: 1-2 Days Associated Systoms: Denies Symptoms Allergies and Home Medications Allergies Coded Allergies: shellfish derived (Verified Allergy, Severe, Anaphylaxis, 08/24/19) Home Medications Acetaminophen with Codeine 1 Each Tablet, 1 EACH PO Q6H PRN for COUGH Prescribed by: SHAUN PARNELL on 10/29/19 1516 Amoxicillin 500 Mg Capsule, 500 MG PO TID Prescribed by: THEO NICOLE on 12/25/192022 Cefuroxime Axetil 250 Mg Tablet, 250 MG PO BID Prescribed by: SHAUN PARNELL on 10/29/19 1447 Docusate Sodium 100 Mg Capsule, 100 MG PO BID PRN for CONSTIPATION-1ST LINE Prescribed by: PETERSON SULTANA on 08/24/19829 Hydrocodone/Acetaminophen 1 Each Tablet, 1 TAB PO Q4-6HR Prescribed by: PETERSON SULTANA on 08/24/19829 Ibuprofen 600 Mg Tablet, 600 MG PO Q6H Prescribed by: PETERSON SULTANA on 08/24/19829 Metronidazole 500 Mg Tablet, 500 MG PO BID Prescribed by: PETERSON SULTANA on 08/25/19 0745 Vit No.124/Iron/FA 1 Each Tablet, 1 EACH PO DAILY, (Reported) [Benzocaine/Menthol] 56 ML AEROSOL, 56 ML TP UD PRN for PAIN- SEE INSTRUCTIONS EXTERNAL USE ONLY Prescribed by: PETERSON SULTANA on 08/24/19829 Patient Home Medication List Home Medication List Reviewed: Yes Review of Systems Review of Systems Constitutional: no symptoms reported, see HPI EENTM: see HPI, dental problems Genitourinary: see HPI, other (rash) All Other Systems Reviewed Negative Unless Noted: Yes Past Mlykqmp-Shauyy-Zwekyf Hx Past Med/Social Hx: Reviewed Nursing Past Med/Soc Hx Patient Social History Type Used: Electronic/Vapor 2nd Hand Smoke Exposure: Yes Recent Foreign Travel: No Contact w/Someone Who Travel: No Recent Infectious Disease Expo: No Seasonal Allergies Seasonal Allergies: No Past Medical History Surgeries: No Respiratory: No Cardiac: No Neurological: No Sexually Transmitted Disease: Yes (syphillis) Genitourinary: No Gastrointestinal: No Musculoskeletal: No Endocrine: No HEENT: No Cancer: No Psychosocial: No Integumentary: No Family Medical History Patient reports no known family medical history. Physical Exam Vital Signs Vital Signs - First Documented 12/25/19 17:20 Temp 37.1 Pulse 76 Resp 20 B/P (MAP) 109/76 (87) Pulse Ox 98 O2 Delivery Room Air Capillary Refill : Less Than 3 Seconds Height, Weight, BMI Height: '" Weight: lbs. oz. kg; 40.00 BMI Method: General Appearance: No Apparent Distress, WD/WN HEENT: PERRL/EOMI, TMs Normal, Moist Mucous Membranes, Other (right lower molar, factured with decay, mild erythema to gingiva. ) Neck: Full Range of Motion, Normal Inspection, Non Tender, Supple Cardiovascular: Regular Rate, Rhythm, No Edema, No Gallop Extremity: Normal Capillary Refill, Normal Inspection, Normal Range of Motion Neurologic/Psychiatric: Alert, Oriented x3, No Motor/Sensory Deficits, Normal Mood/Affect Skin: Normal Color, Warm/Dry Comments Follicular erythema to right labia, trace rash, no discharge. Progress/Results/Core Measures Suspected Sepsis Recent Fever Within 48 Hours: No Infection Criteria Present: None New/Unexplained Altered Menta: No Sepsis Screen: No Definite Risk SIRS Temperature: Pulse: 76 Respiratory Rate: 20 Blood Pressure 109 /76 Mean: 87 Results/Orders Lab Results Laboratory Tests Test 12/25/19 20:32 Range/Units My Orders Orders - THEO NICOLE Rx-Mupirocin 2% Oint (Rx-Bactroban) (12/25/19 20:10) Rx-Amoxicillin Capsule (Rx-Polymox Capsu (12/25/19 20:10) Syphilis Antibody Screen (12/25/19 20:17) Penicillin G Proc/Rocael 1.2 Mu (Bicillin (12/25/19 20:30) Medications Given in ED Current Medications Medications Dose Ordered Sig/Yasmin Route Start Time Stop Time Status Last Admin Dose Admin Penicillin G Procaine/ Benzathine 1,200,000 unit ONCE ONCE IM 12/25/19 20:30 12/25/19 20:31 DC 12/25/19 20:34 1,200,000 UNIT Vital Signs/I&O 12/25/19 12/25/19 17:20 20:54 Temp 37.1 37.1 Pulse 76 76 Resp 20 20 B/P (MAP) 109/76 (87) 109/76 (87) Pulse Ox 98 98 O2 Delivery Room Air Room Air Capillary Refill : Less Than 3 Seconds Blood Pressure Mean: 87 Progress Note : Time: 17:30 Progress Note Patient seen and evaluated, discussed checking an RPR which were requested provider or syphilis. She understands she'll need to follow up for this with Dr. Sultana. Will go ahead and prophylactically treat with penicillin G. Will start amoxicillin for the dental abscess. Encouraged she follow-up with [facility]. 2020 Discharge instructions and return precautions reviewed with the patient. Departure Impression Primary Impression: Folliculitis Additional Impressions: Dental decay Dental abscess Syphilis Disposition: HOME, SELF-CARE Condition: Improved Departure-Patient Inst. Decision time for Depature: 20:20 Referrals: NO,LOCAL PHYSICIAN (PCP/Family) Primary Care Physician Patient Instructions: Syphilis (DC), Tooth Decay, Adult (DC) Add. Discharge Instructions: Use antibiotic oint to lesion on labia, 3 times daily, use tweezer to remove hairs where inflamed. Follow up with Dr. Sultana, if symptoms are not improving or worsen. Titer results for Syphilis. Scheduled follow-up with [facility] [address]. Alternate between ibuprofen 600 mg and Tylenol 650 mg every 4 hours for pain or swelling. Take antibiotic, as prescribed. Use ointments for dental pain such as [facility] or Ambesol. Rinse mouth with Listerine, three times daily. Return to emergency department for new, urgent health care needs. All discharge instructions reviewed with patient and/or family. Voiced understanding. Scripts Amoxicillin (Amoxicillin) 500 Mg Capsule 500 MG PO TID, #21 CAP 0 Refills Prov: THEO NICOLE 2/18/20 Copy Copies To 1: PETERSON SULTANA AMY ARNP Dec 25, 2019 20:24
[2019-12-25] MEDS ORDERED: PEN G PROC/BENZATH 1.2 M UNITS (BICILLIN C-R) SYR IM ONE (20:30)
[2019-12-25 20:54] VITALS: BP 109/76
== END 2019-12-25 20:54 | disposition home or self-care (01) ==
LOC: ER 17:07 → EDUNIT# 17:07 → ER 20:54
DX: K04.7 Periapical abscess without sinus (principal); K02.9 Dental caries, unspecified; L73.9 Follicular disorder, unspecified; A53.9 Syphilis, unspecified; Z91.013 Allergy to seafood
CPT/HCPCS: 36415; 86592; 86780; 99284